=== PATIENT | male | born 2000 | race Two or more races ===

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

== ENCOUNTER 2024-03-13 12:33 | Emergency (ER) | payer BC, MEDICAID | END 2024-03-13 13:58 | disposition left against medical advice (07) | LOC: ER 12:33 | DX: Z04.1 Encounter for examination and observation following transport accident (principal); V89.2XXA Person injured in unspecified motor-vehicle accident, traffic, initial encounter; Y93.89 Activity, other specified; Y92.89 Other specified places as the place of occurrence of the external cause; Y99.8 Other external cause status ==